=== PATIENT | male | born 1965 | race Caucasian/White ===

== ENCOUNTER 2025-03-11 07:24 | Emergency (ER) | payer SELFPAY ==
[~2025-03-11] VITALS: Ht 175.3 cm; Wt 77.1 kg
[2025-03-11 07:39] VITALS: O2SAT 100
[2025-03-11 08:07] LABS: BASOPHILS % 0.6 % (0.0-2.0); EOSINOPHILS % 1.4 % (0.0-5.0); HEMATOCRIT. 44.2 % (42.0-52.0); HEMOGLOBIN. 14.8 g/dL (14.0-18.0); LYMPHOCYTES % 23.8 % (20.0-50.0); MEAN CORPUSCULAR HEMOGLOBIN 30.1 pg (28.0-32.0); MEAN CORPUSCULAR HGB CONC 33.5 g/dL (31.0-37.0); MEAN CORPUSCULAR VOLUME 89.8 fL (80.0-94.0); MEAN PLATELET VOLUME 8.2 fl (7.4-10.4); MONOCYTES % 8.6 % (2.0-8.0); NEUTROPHILS % 65.6 % (40.0-76.0); PLATELET 156 x1000/uL (130-400); RED BLOOD CELL COUNT 4.92 mill/uL (4.7-6.1); WHITE BLOOD COUNT 7.6 x1000/uL (4.5-11.0)
[2025-03-11 08:19] LABS: CHLORIDE 104 mEq/L (98-107); POTASSIUM 3.7 mEq/L (3.5-5.1); SODIUM 140 mEq/L (136-145)
[2025-03-11 08:20] LABS: CALCIUM 8.8 mg/dL (8.7-10.4); CARBON DIOXIDE 27 mEq/L (21-32)
[2025-03-11 08:23] LABS: D-DIMER 0.22 mg/L FEU (<0.50); PROTHROMBIN TIME 10.3 sec (9.6-11.0)
[2025-03-11 08:25] LABS: CREATININE 1.1 mg/dL (0.6-1.3); GLUCOSE 122 mg/dL (70-105); UREA NITROGEN BLOOD 18 mg/dL (9-23)
[2025-03-11 08:26] LABS: TROPONIN I HIGH SENSITIVITY 4 ng/L (3.0-53)
[2025-03-11 08:27] LABS: ALANINE AMINOTRANSFERASE 20 IU/L (10-49); ALBUMIN 4.1 g/dL (3.2-4.8); ASPARTATE AMINOTRANSFERASE 18 IU/L (<34); BILIRUBIN DIRECT < 0.1 mg/dL (<=3.0); BILIRUBIN TOTAL 0.5 mg/dL (0.1-1.0)
[2025-03-11 08:28] VITALS: TEMP 36.6
[2025-03-11 08:28] LABS: PROTEIN TOTAL 7.2 g/dL (6.0-8.3)
[2025-03-11 08:29] LABS: THYROID STIMULATING HORMONE 2.85 uIU/mL (0.55-4.78)
[2025-03-11 10:16] VITALS: BP 109/73; PULSE 68; RESP 18; O2SAT 100
== END 2025-03-11 10:38 | disposition home or self-care (01) ==
LOC: ER 07:24
DX: R00.2 Palpitations (principal)
CPT/HCPCS: 36415; 71045; 80048; 80076; 83880; 84443; 84484; 85025; 85379; 93005; 99285